=== PATIENT | male | born 1960 | race Two or more races ===

== ENCOUNTER 2024-03-19 10:12 | Inpatient (IN) | payer MEDICAID ==
[~2024-03-19] VITALS: Ht 188 cm; Wt 107.0 kg
--- NOTE | 2024-03-19 10:56 | ED.PDOC ---
SOB-HPI HPI Comments A 63 year old male presents to the ED with a chief complaint of shortness of breath onset 5 days. Patient began experiencing cough with shortness of breath and lightheadedness onset 5 days. Patient has a past medical history of asthma, has been using his inhaler which helps symptoms temporarily. He took an at home COVID test, was negative. Denies chest pain, nausea, vomiting, diarrhea, abdominal pain. No other symptoms or modifying factors present at this time. Chief Complaint: Shortness of Breath Time Seen by MD: 10:53 Reviewed notes: Medications, Allergies Information Source: Patient Mode of Arrival: Ambulatory Severity: Moderate Timing: Days Duration: Since onset PE Risk Factors: None History of: Asthma Prehospital treatment: Treatment (albuterol inhaler) Modifying Factors: Nothing Associated Signs and Symptoms: Cough Radiation: No Radiation Past Medical History PAST MEDICAL HISTORY: Arthritis, Asthma Surgical History: Denies all surgeries Family History Family History: Reviewed,noncontributory to illness, No family hx of Cancer, No family hx of DM, No family hx of Heart pablo, No family hx of HTN, No family hx ofKidney pablo, No family hx of Liver pablo, No family hx of Lung pablo, No family hx of Stroke Social History Smoker: Non-Smoker Alcohol: Denies ETOH Use Drugs: Denies Drug Use Lives In: Home Constitutional: denies: chills, diaphoresis, fatigue, fever, malaise, sweats, weakness, others EENTM: denies: blurred vision, double vision, ear bleeding, ear discharge, ear drainage, ear pain, ear ringing, eye pain, eye redness, hearing loss, mouth pain, mouth swelling, nasal discharge, nose bleeding, nose congestion, nose pain, photophobia, tearing, throat pain, throat swelling, voice changes, others Respiratory: reports: cough, shortness of breath; denies: hemoptysis, orthopnea, SOB at rest, SOB with excertion, stridor, wheezing, others Cardiovascular: denies: chest pain, dizzy spells, diaphoresis, Dyspnea on exertion, edema, irregular heart beat, left arm pain, lightheadedness, palpitations, PND, syncope, others Gastrointestinal: denies: abdomen distended, abdominal pain, blood streaked bowels, constipated, diarrhea, dysphagia, difficulty swallowing, hematemesis, melena, nausea, poor appetite, poor fluid intake, rectal bleeding, rectal pain, vomiting, others Genitourinary: denies: burning, dysuria, flank pain, frequency, hematuria, incontinence, penile discharge, penile sore, pain, testicle pain, testicle swelling, urgency, others Neurological: reports: dizziness; denies: fainting, headache, left sided numbness, left sided weakness, numbness, paresthesia, pre-existing deficit, right sided numbness, right sided weakness, seizure, speech problems, tingling, tremors, weakness, others Musculoskeletal: denies: back pain, gout, joint pain, joint swelling, muscle pain, muscle stiffness, neck pain, others Integumetry: denies: bruises, change in color, change in hair/nails, dryness, laceration, lesions, lumps, rash, wounds, others Allergic/Immunocompromised: denies: Difficulty Healing, Frequent Infections, Hives, Itching, others Hematologic/Lymphatic: denies: anemia, blood clots, easy bleeding, easy bruising, swollen glands, others Endocrine: denies: excessive hunger, excessive sweating, excessive thirst, excessive urination, flushing, intolerance to cold, intolerance to heat, unexplained weight gain, unexplained weight loss, others Psychiatric: denies: anxiety, bipolar disorder, depression, hopeless, panic disorder, schizophrenia, sleepless, suicidal, others All Other Systems: Reviewed and Negative Physical Exam General Appearance: No Apparent Distress, Normal HEENT: Normal ENT Inspection, Pharynx Normal, TMs Normal Neck: Full Range of Motion, Non-Tender, Normal, Normal Inspection Respiratory: Chest Non-Tender, No Accessory Muscle Use, Wheezing (bilateral, expiratory) Cardiovascular: No Edema, No JVD, No Murmur, No Gallop, Normal Peripheral Pulses, Regular Rate/Rhythm Breast Exam: Deferred Gastrointestinal: No Organomegaly, Non Tender, No Pulsatile Mass, Normal Bowel Sounds, Soft Genitalia: Deferred Pelvic: Deferred Rectal: Deferred Extremities: No calf tenderness, Normal capillary refill, Normal inspection, Normal range of motion, Non-tender, No pedal edema Musculoskeletal : Apperance: Normal Neurologic: Alert, hand flesher II-XII nml as Tested, No Motor Deficits, Normal Affect, Normal Mood, No Sensory Deficits Cerebellar Function: Normal Reflexes: Normal Skin: Dry, Normal Color, Warm Lymphatic: No Adenopathy Was a procedure done? Was a procedure done?: No Differential Dx Differential Diagnosis: Asthma, Bronchitis, CHF, COPD, Pneumonia, URI X-Ray, Labs, Meds, VS Vital Signs Date Time Temp Pulse Resp B/P (MAP) Pulse Ox O2 Delivery O2 Flow Rate FiO2 03/19/24 11:09 24 99 Room Air* 0 21 03/19/24 10:45 98.7 99 18 114/81 (92) 99 Lab Test 03/19/24 11:57 03/19/24 11:00 Range/Units Troponin I High Sensitivity < 3 L < 3 L </=54 ng/L White Blood Count 6.2 4.4-10.8 10^3/uL Red Blood Count 4.62 4.5-5.90 10^6/uL Hemoglobin 16.2 13.5-17.5 g/dL Hematocrit 47.1 41.0-53.0 % Mean Corpuscular Volume 101.9 H 80.0-100.0 fL Mean Corpuscular Hemoglobin 35.0 H 28.0-32.0 pg Mean Corpuscular Hemoglobin Concent 34.4 32.0-36.0 g/dL Red Cell Distribution Width 14.7 H 11.8-14.3 % Platelet Count 274 140-450 10^3/uL Mean Platelet Volume 7.7 6.9-10.8 fL Neutrophils (%) (Auto) 73.2 37.0-80.0 % Lymphocytes (%) (Auto) 12.0 10.0-50.0 % Monocytes (%) (Auto) 12.2 H 0.0-12.0 % Eosinophils (%) (Auto) 1.9 0.0-7.0 % Basophils (%) (Auto) 0.7 0.0-2.0 % Neutrophils # (Auto) 4.5 1.6-8.6 10 ^3/uL Lymphocytes # (Auto) 0.7 0.4-5.4 10 ^3/uL Monocytes # (Auto) 0.8 0-1.3 10 ^3/uL Eosinophils # (Auto) 0.1 0-0.8 10 ^3/uL Basophils # (Auto) 0 0-0.2 10 ^3/uL Nucleated Red Blood Cells 0.2 % Sodium Level 139 136-145 mmol/L Potassium Level 4.7 3.5-5.1 mmol/L Chloride Level 107 98-107 mmol/L Carbon Dioxide Level 23 20-31 mmol/L Anion Gap 9 5-15 Blood Urea Nitrogen 19 9-23 mg/dL Creatinine 1.29 0.700-1.30 mg/dL Glomerular Filtration Rate Calc 63 >90 mL/min BUN/Creatinine Ratio 14.7 10.0-20.0 Serum Glucose 127 H 74-106 mg/dL Calcium Level 9.9 8.7-10.4 mg/dL B-Type Natriuretic Peptide 2.25 0-100 pg/mL Current Medications Medications (Trade) Dose Ordered Sig/Cliff Route Start Time Stop Time Status Last Admin Azithromycin (Zithromax Tablet) 500 mg ONCE ONCE PO 03/19/24 11:00 03/19/24 11:01 DC 03/19/24 11:16 Albuterol (Ventolin Medneb) 5 mg ONCE ONCE NEB 03/19/24 11:00 03/19/24 11:01 DC 03/19/24 11:08 Ipratropium [place] (Atrovent Medneb) 0.5 mg ONCE ONCE NEB 03/19/24 11:00 03/19/24 11:01 DC 03/19/24 11:08 [place] [id number] Ph: [phone] DIAGNOSTIC IMAGING Diagnostic Imaging Report : [id number] Signed PATIENT: BELKYS MARSHALLCCT: [id number] UNIT: [id number] : 1960 LOC: ER ROOM / BED: / AGE / SEX: 63 / M ADM STATUS: REG ER SERVICE 1056 ORDERING PHYSICIAN: JV LUNA MD PROCEDURE(s): CXR2 - CHEST TWO VIEWS ROUTINE REASON: SOB ORDER NUMBER(s): [id number], ACCESSION NUMBER(s): [id number] CHEST RADIOGRAPH Indication: SOB Technique: Frontal and lateral view of the chest was obtained Comparison: None FINDINGS: Lines and Tubes: None Lungs: Bilateral perihilar airspace disease. Pleura: No effusion. No pneumothorax. Cardiomediastinal contours: Unremarkable Bones: Unremarkable IMPRESSION: 1. Bilateral perihilar airspace disease. ATED BY: AFSHIN MONTERROSO MD DICTATED DATE/TIME: 03/19/24 1145 SIGNED BY: AFSHIN MONTERROSO MD SIGNED DATE/TIME: 03/19/24 1145 CC: Time of 1ST Reevaluation: 11:23 Reevaluation 1ST: Unchanged Patient Education/Counseling: Diagnosis, Treatment, Prognosis Family Education/Counseling: No Family Present Additional Information The following tests were ordered, and results were reviewed by me: CBC, BNP, TROP, TROP, TROP. BMP, EKG, XY CHEST 2 VIEWS I reviewed and agreed with the following test results read by other providers: XY CHEST 2 VIEWS I discussed treatment and results with medical personnel and paitent Departure 1 Departure Time of Disposition: 12:35 (Patient presented with acute shortness of breath concerning for acute on chronic COPD Exacerbation, Pneumonia, ACS, CHF, Pneumothorax. Less likely PE, Dissection. Data: 1. I ordered and reviewed the result of at least 3 labs including a CBC, BMP, and Troponin. 2. I independently interpreted the following tests: Chest X-ray shows airspace disease .Risk:This patient has a high risk of morbidity due to further diagnostic testing or treatment and may suffer from respiratory or cardiac etiology . Workup reveals a likely COPD Exacerbation and patient should be admitted for further workup. and possible expert consultation.) Impression: Primary Impression: Acute exacerbation of COPD with asthma Disposition: ADMITTED INPATIENT Admit to: Med Surg Condition: Serious Critical Care Note Critical Care Time?: Yes Critical care comment: Acute shortness of breath Authorized and Performed by: Jv Luna MD Total critical care time: Approximately 33 minutes Due to a high probability of clinically significant, life threatening deterioration, the patient required my highest level of preparedness to intervene emergently and I personally spent this critical care time directly and personally managing the patient. This critical care time included obtaining a history; examining the patient; pulse oximetry; ordering and review of studies; arranging urgent treatment with development of a management plan; evaluation of patient's response to treatment; frequent reassessment; and, discussions with other providers. This critical care time was performed to assess and manage the high probability of imminent, life-threatening deterioration that could result in multi-organ failure. It was exclusive of separately billable procedures and treating other patients and teaching time. Please see my other sections and the rest of the note for further information on patient assessment and treatment. Stability Stability form required: No Heart Score Heart Score: Heart Score Response (Comments) Value History N/A 0 EKG N/A 0 Age N/A 0 Risk Factors N/A 0 Troponin N/A 0 Total 0 I personally scribed for JV LUNA MD ([email or web address]) on 03/19/24 at 10:56. Electronically submitted by Fanta Zimmerman ([email or web address]). I personally scribed for JV LUNA MD ([email or web address]) on 03/19/24 at 11:21. Electronically submitted by Fanta Zimmerman ([email or web address]). I personally scribed for JV LUNA MD ([email or web address]) on 03/19/24 at 11:58. Electronically submitted by Fanta Zimmerman ([email or web address]). JV LUNA MD Mar 19, 2024 10:56
--- NOTE | 2024-03-19 11:07 | ECG ---
[facility] Test Date: 2024-03-19 Test Time: 10:47:24 Pat Name: BELKYS MARSHALL Department: ER Room: 0246 Gender: M [employer] Executive: JORGE : 1960 Requested By: ABENA MASSEY Order Number: [id number] Reading MD: Gianfranco Dorantes Measurements Intervals [place] Rate: 99 P: 12 NV: 135 QRS: -86 QRSD: 88 T: 61 QT: 334 QTc: 429 Interpretive Statements Sinus rhythm Consider right atrial enlargement LAD, consider left anterior fascicular block Probable right ventricular hypertrophy Electronically Signed On 03-22-2024 13:04:41 PST by Gianfranco Dorantes Please click the below link to view image of tracing.
[2024-03-19] MEDS: ALBUTEROL SULF 2.5 MG/0.5ML(0.5%) NEB SOLN NEB ONE (11:08)
[2024-03-19] MEDS: IPRATROPIUM BROM 0.5 MG/2.5ML INH SOL NEB ONE (11:08)
[2024-03-19 11:16] LABS: Basophils # (auto) 0 10 ^3/uL (0-0.2); Basophils % (auto) 0.7 % (0.0-2.0); Eosinophils # (auto) 0.1 10 ^3/uL (0-0.8); Eosinophils % (auto) 1.9 % (0.0-7.0); Hematocrit 47.1 % (41.0-53.0); Hemoglobin 16.2 g/dL (13.5-17.5); Lymphocytes # (auto) 0.7 10 ^3/uL (0.4-5.4); Mean Corpuscular Hgb Conc. 34.4 g/dL (32.0-36.0); Mean Corpuscular Volume 101.9 fL (80.0-100.0); Monocytes # (auto) 0.8 10 ^3/uL (0-1.3); Monocytes % (auto) 12.2 % (0.0-12.0); Neutrophils # (auto) 4.5 10 ^3/uL (1.6-8.6); Neutrophils % (auto) 73.2 % (37.0-80.0); Nucleated Red Blood Cells % 0.2 %; Platelet Count (auto) 274 10^3/uL (140-450); Red Blood Cells 4.62 10^6/uL (4.5-5.90); Red Cell Distribution Width 14.7 % (11.8-14.3); White Blood Cell 6.2 10^3/uL (4.4-10.8)
[2024-03-19] MEDS: AZITHROMYCIN 250 MG TAB PO ONE (11:16)
[2024-03-19 11:24] LABS: Potassium 4.7 mmol/L (3.5-5.1); Sodium 139 mmol/L (136-145)
[2024-03-19 11:25] LABS: Anion Gap 9 (5-15); Carbon Dioxide 23 mmol/L (20-31)
[2024-03-19 11:26] LABS: Calcium 9.9 mg/dL (8.7-10.4)
[2024-03-19 11:31] LABS: BUN/Creatinine Ratio 14.7 (10.0-20.0); Blood Urea Nitrogen 19 mg/dL (9-23)
[2024-03-19 11:35] LABS: Chloride 107 mmol/L (98-107); Glucose 127 mg/dL (74-106)
--- NOTE | 2024-03-19 11:48 | DVH ---
CHEST RADIOGRAPH Indication: SOB Technique: Frontal and lateral view of the chest was obtained Comparison: None FINDINGS: Lines and Tubes: None Lungs: Bilateral perihilar airspace disease. Pleura: No effusion. No pneumothorax. Cardiomediastinal contours: Unremarkable Bones: Unremarkable IMPRESSION: 1. Bilateral perihilar airspace disease.
[2024-03-19] MEDS: ACETAMINOPHEN 500 MG TAB or CAP PO ONE (12:53)
[2024-03-19] MEDS: methylPREDNISolone SOD SUCC 125 MG/2 ML VL IV ONE (13:23)
[2024-03-19] MEDS ORDERED: HYDROcodone-ACET 5/325MG TAB PO PRN (18:45)
[2024-03-19] MEDS ORDERED: ONDANSETRON HCL 4 MG/2 ML VIAL IV PRN (18:45)
[2024-03-19] MEDS ORDERED: ACETAMINOPHEN 325 MG TAB PO PRN (18:45)
--- NOTE | 2024-03-19 18:54 | DVHHP2 ---
History of Present Illness Reason for Visit: Shortness of breath, cough, lightheadedness History of Present Illness As always, Bao Lyles is a 63-year-old male with past medical history of asthma and rheumatoid arthritis who presents to the ED today for shortness of breath, cough, and lightheadedness x5 days. Patient reports that he had a recent sick contact which is his roommate. Patient also reports that he has been using his albuterol inhaler for his asthma to no success. Patient reports that he is active and typically does not get ill but is here for an evaluation. Patient denies any fevers, chills, chest pain, nausea, vomiting, diarrhea, headache, and dizziness. Pulmonary: Asthma Past Medical History Rheumatoid arthritis Past Surgical History: Other Past Surgical History Left foot surgery, nasal surgery, bilateral knee replacements Family History Patient reports that he was adopted and does not know Smoke: Quit ALCOHOL: none Drugs: None Lives: Roommate Domestic Violence: Neg Review of Systems Constitutional: No: Fever, Chills, Sweats, Weakness, Malaise, Other Eyes: No: Pain, Vision change, Conjunctivae inflammation, Eyelid inflammation, Other, Redness ENT: No: Ear pain, Ear discharge, Nose pain, Nose discharge, Nose congestion, Mouth pain, Mouth swelling, Throat pain, Throat swelling, Other Respiratory: Cough, Shortness of breath, Wheezing; No: Dry, SOB with excertion, Hemoptysis, Pleuritic Pain, Sputum, Wheezing, Other Cardiovascular: Lt Headedness; No: Chest Pain, Palpitations, Orthopnea, Paroxysmal Noc. Dyspnea, Edema, Other Gastrointestinal: No: Nausea, Vomiting, Abdominal Pain, Diarrhea, Constipation, Melena, Hematochezia, Other Genitourinary: No Dysuria, No Frequency, No Incontinence, No Hematuria, No Retention, No Other Musculoskeletal: No: other, neck pain, shoulder pain, arm pain, back pain, hand pain, leg pain, foot pain Skin: No: Rash, Lesions, Jaundice, Bruising, Other Neurological: No: Weakness, Numbness, Incoordination, Change in speech, Confusion, Seizures, Other Allergies: Coded Allergies: NO KNOWN ALLERGIES (Unverified , 03/19/24) Exam Vital Signs Vital Signs Date Time Temp Pulse Resp B/P (MAP) Pulse Ox O2 Delivery O2 Flow Rate FiO2 12/21/24 18:33 98.7 91 18 129/82 (98) 97 98.7 03/19/24 12:31 Room Air 03/19/24 11:09 0 21 General Appearance: Alert, Oriented X3, Cooperative, mild distress HEENT: Atraumatic, PERRLA, EOMI, Mucous membr. moist/pink Respiratory: Normal air movement Cardiovascular: Regular rate, Normal S1, Normal S2, No murmurs Abdominal: Normal bowel sounds, Soft, No tenderness, No hepatospenomegaly, No masses Extremities: No clubbing, No cyanosis, No edema, Normal pulses, No tenderness/swelling Skin: No rashes, No breakdown, No significant lesion Neuro: Normal gait, Normal speech, Strength at 5/5 X4 ext, Normal tone, Sensation intact Psych/Mental Status: Mental status NL, Mood NL Labs/Xrays Labs Test 03/19/24 11:57 03/19/24 11:00 Range/Units Troponin I High Sensitivity < 3 L </=54 ng/L White Blood Count 6.2 4.4-10.8 10^3/uL Red Blood Count 4.62 4.5-5.90 10^6/uL Hemoglobin 16.2 13.5-17.5 g/dL Hematocrit 47.1 41.0-53.0 % Mean Corpuscular Volume 101.9 H 80.0-100.0 fL Mean Corpuscular Hemoglobin 35.0 H 28.0-32.0 pg Mean Corpuscular Hemoglobin Concent 34.4 32.0-36.0 g/dL Red Cell Distribution Width 14.7 H 11.8-14.3 % Platelet Count 274 140-450 10^3/uL Mean Platelet Volume 7.7 6.9-10.8 fL Neutrophils (%) (Auto) 73.2 37.0-80.0 % Lymphocytes (%) (Auto) 12.0 10.0-50.0 % Monocytes (%) (Auto) 12.2 H 0.0-12.0 % Eosinophils (%) (Auto) 1.9 0.0-7.0 % Basophils (%) (Auto) 0.7 0.0-2.0 % Neutrophils # (Auto) 4.5 1.6-8.6 10 ^3/uL Lymphocytes # (Auto) 0.7 0.4-5.4 10 ^3/uL Monocytes # (Auto) 0.8 0-1.3 10 ^3/uL Eosinophils # (Auto) 0.1 0-0.8 10 ^3/uL Basophils # (Auto) 0 0-0.2 10 ^3/uL Nucleated Red Blood Cells 0.2 % Sodium Level 139 136-145 mmol/L Potassium Level 4.7 3.5-5.1 mmol/L Chloride Level 107 98-107 mmol/L Carbon Dioxide Level 23 20-31 mmol/L Anion Gap 9 5-15 Blood Urea Nitrogen 19 9-23 mg/dL Creatinine 1.29 0.700-1.30 mg/dL Glomerular Filtration Rate Calc 63 >90 mL/min BUN/Creatinine Ratio 14.7 10.0-20.0 Serum Glucose 127 H 74-106 mg/dL Calcium Level 9.9 8.7-10.4 mg/dL B-Type Natriuretic Peptide 2.25 0-100 pg/mL CHEST RADIOGRAPH Indication: SOB Technique: Frontal and lateral view of the chest was obtained Comparison: None FINDINGS: Lines and Tubes: None Lungs: Bilateral perihilar airspace disease. Pleura: No effusion. No pneumothorax. Cardiomediastinal contours: Unremarkable Bones: Unremarkable IMPRESSION: 1. Bilateral perihilar airspace disease. Assessment/Plan Assessment/Plan Assessment/Plan: Acute asthma exacerbation Chest x-ray noted EKG Troponins BNP Respiratory treatments Chest x-ray a.m. IV steroids P.r.n. oxygen Labs A.m. labs IV antibiotics Rheumatoid arthritis Follow up outpatient FEN/PPX diet hl DVT ppx not indicated patient ambulating PUD ppx not indicated no hx of GERD Discussed plan of care with patient and nurse Admit to med surg Plan discussed with: Patient My Orders Orders - TOMMY CASSIDY [employer]INEER Procedure Category Date Status Time Rapid Influenza A&B LAB 03/19/24 Logged 18:32 Covid19 Antigen Nisha LAB 03/19/24 Logged Chest Xray 1 View XY 03/20/24 Logged 04:00 Ceftriaxone 1gm/50ml PHA 03/20/24 Logged D5w (Rocephin) 09:00 Ceftriaxone 1gm/50ml PHA 03/19/24 Logged D5w (Rocephin) 18:45 Methylprednisolone PHA 03/19/24 Logged Sod Succ (Solu Medrol 22:00 Albuterol Medneb PHA 03/20/24 Logged (Ventolin Medneb) 06:00 Albuterol Medneb PHA 03/19/24 Logged (Ventolin Medneb) 18:45 Ipratropium Medneb PHA 03/20/24 Logged (Atrovent Medneb) 06:00 Ipratropium Medneb PHA 03/19/24 Logged (Atrovent Medneb) 18:45 Admit ADMIT 03/19/24 Transmitted 18:34 Allergies DONAVAN 03/19/24 In Process 18:34 Code Status CODE 03/19/24 Transmitted 18:34 Hydrocodone-Acet PHA 03/19/24 Logged 5/325mg Tab ([place] 18:45 Ondansetron Hcl PHA 03/19/24 Logged (Zofran) 18:45 Complete Blood Count LAB 03/20/24 Verified 04:00 Comprehensive LAB 03/20/24 Verified Metabolic Panel 04:00 Cardiac DIET 03/20/24 Transmitted Diet-2gna,Lofat,Lochol Breakfast Acetaminophen Tablet PHA 03/19/24 Logged (Tylenol Tablet) 18:45 Date of Service: Mar 19, 2024 Billing Provider: TOMMY CASSIDY Common Visit Codes: [id number] INP/OBS CARE (MOD) TOMMY CASSIDY Mar 19, 2024 18:54
[2024-03-19 19:15] VITALS: PULSE 71; RESP 16; O2SAT 99
[2024-03-19] MEDS: cefTRIAXone 1GM/50ML D5W 50 ML IV ONE (19:23)
[2024-03-19 19:53] VITALS: BP 124/75; PULSE 91; RESP 18; TEMP 99.5; O2SAT 99
[2024-03-19 20:50] LABS: Urine Bacteria None Seen /hpf (None Seen); Urine WBC None Seen /hpf (0 - 3)
[2024-03-19 21:26] LABS: Urine Blood Negative /uL (Negative); Urine Clarity Clear (Clear); Urine Color Yellow (Yellow); Urine Protein, UAD Negative (Negative); Urine Specific Gravity 1.023 (1.001-1.035); Urine Squamous Epithelial Cell None Seen /hpf (<5); Urine Urobilinogen Normal (Negative)
[2024-03-19] MEDS: methylPREDNISolone SOD SUCC 40 MG/ML VL IV SCH (21:43)
[2024-03-19 21:57] LABS: COVID19 ANTIGEN SOFIA FIA NEGATIVE (NEGATIVE)
[2024-03-19 21:58] LABS: Rapid Influenza A Negative (Negative); Rapid Influenza B Negative (Negative)
[2024-03-19 22:36] VITALS: BP 155/92; PULSE 87; RESP 16; TEMP 97.9; O2SAT 98
[2024-03-19 22:50] VITALS: RESP 20
[2024-03-19 22:59] VITALS: PULSE 89; RESP 18; O2SAT 98
[2024-03-19] MEDS: ALBUTEROL SULF 2.5 MG/0.5ML(0.5%) NEB SOLN NEB PRN (22:59)
[2024-03-19] MEDS: IPRATROPIUM BROM 0.5 MG/2.5ML INH SOL NEB PRN (22:59)
[2024-03-19 23:09] VITALS: PULSE 90; RESP 20; O2SAT 99
[2024-03-20] VITALS (15 sets, daily range): BP systolic 105–142; BP diastolic 66–78; PULSE 70–95; RESP 16–22; TEMP 97.3–98; O2SAT 96–100
[2024-03-20] MEDS ORDERED: PANT40TA2 PO (00:07)
[2024-03-20] MEDS ORDERED: BENZ100C97 PO (00:07)
[2024-03-20] MEDS ORDERED: FOLI-119 PO (00:07)
[2024-03-20] MEDS ORDERED: IBUP-1456 PO (00:07)
[2024-03-20] MEDS ORDERED: METH2.5T PO (00:07)
[2024-03-20] MEDS ORDERED: ETAN25IN8 SC (00:18)
--- NOTE | 2024-03-20 05:11 | DVH ---
CHEST RADIOGRAPH Indication: r/o pna Technique: Single frontal view of the chest was obtained Comparison: None IMPRESSION: The heart appears normal in size. The lungs appear clear without focal airspace opacity, effusion, o r pneumothorax.
[2024-03-20] MEDS: IPRATROPIUM BROM 0.5 MG/2.5ML INH SOL NEB SCH (05:44)
[2024-03-20] MEDS: ALBUTEROL SULF 2.5 MG/0.5ML(0.5%) NEB SOLN NEB SCH (05:44)
[2024-03-20 07:02] LABS: Basophils # (auto) 0.1 10 ^3/uL (0-0.2); Basophils % (auto) 1.1 % (0.0-2.0); Eosinophils # (auto) 0 10 ^3/uL (0-0.8); Eosinophils % (auto) 0.1 % (0.0-7.0); Hematocrit 42.9 % (41.0-53.0); Hemoglobin 14.8 g/dL (13.5-17.5); Lymphocytes # (auto) 0.7 10 ^3/uL (0.4-5.4); Lymphocytes % (auto) 10.5 % (10.0-50.0); Mean Corpuscular Hemoglobin 35.5 pg (28.0-32.0); Mean Corpuscular Hgb Conc. 34.5 g/dL (32.0-36.0); Mean Corpuscular Volume 102.8 fL (80.0-100.0); Monocytes # (auto) 0.6 10 ^3/uL (0-1.3); Monocytes % (auto) 9.2 % (0.0-12.0); Neutrophils # (auto) 5.2 10 ^3/uL (1.6-8.6); Neutrophils % (auto) 79.1 % (37.0-80.0); Platelet Count (auto) 247 10^3/uL (140-450); Red Blood Cells 4.17 10^6/uL (4.5-5.90); Red Cell Distribution Width 14.6 % (11.8-14.3); White Blood Cell 6.5 10^3/uL (4.4-10.8)
[2024-03-20 07:31] LABS: Albumin 4.3 g/dL (3.2-4.8); Alkaline Phosphatase 114 U/L (46-116); Anion Gap 10 (5-15); Aspartate Aminotransferase 32 U/L (13-40); BUN/Creatinine Ratio 17.3 (10.0-20.0); Blood Urea Nitrogen 17 mg/dL (9-23); Calcium 9.4 mg/dL (8.7-10.4); Carbon Dioxide 22 mmol/L (20-31); Potassium 4.2 mmol/L (3.5-5.1); Sodium 140 mmol/L (136-145)
[2024-03-20 07:32] LABS: Bilirubin, Total 0.3 mg/dL (0.2-1.0); Total Protein 7.5 g/dL (5.7-8.2)
[2024-03-20 07:50] LABS: Alanine Aminotransferase 41 U/L (7-40); Chloride 108 mmol/L (98-107); Glucose 154 mg/dL (74-106)
[2024-03-20] MEDS: cefTRIAXone 1GM/50ML D5W 50 ML IV SCH (09:12)
--- NOTE | 2024-03-20 19:25 | DVHPN2 ---
Subjective c/o chest tightness and wheezing/chest tightness is better than admission Changes from previous H/P or p: No Changes Eyes: No Pain, No Vision change, No Conjunctivae inflammation, No Eyelid inflammation, No Other, No Redness ENT: No Ear pain, No Ear discharge, No Nose pain, No Nose discharge, No Nose congestion, No Mouth pain, No Mouth swelling, No Throat pain, No Throat swelling, No Other Cardiovascular: No Chest Pain, No Palpitations, No Orthopnea, No Paroxysmal Noc. Dyspnea, No Edema; Lt Headedness; No Other Respiratory: Cough; No Dry; Shortness of breath; No SOB with excertion; W heezing; No Hemoptysis, No Pleuritic Pain, No Sputum, No Other Gastrointestinal: No Nausea, No Vomiting, No Abdominal Pain, No Diarrhea, No Constipation, No Melena, No Hematochezia, No Other Genitourinary: No Dysuria, No Frequency, No Incontinence, No Hematuria, No Retention, No Other Musculoskeletal: No other, No neck pain, No shoulder pain, No arm pain, No back pain, No hand pain, No leg pain, No foot pain Skin: No Rash, No Lesions, No Jaundice, No Bruising, No Other Objective Vitals Vital Signs Date Time Temp Pulse Resp B/P (MAP) Pulse Ox O2 Delivery O2 Flow Rate FiO2 03/20/24 19:02 78 20 96 03/20/24 18:56 Nasal Cannula* 2 28 03/20/24 17:00 97.9 112/66 (81) 97.9 Intake/Output Intake and Output 03/20/24 07:00 Intake Total 550 ml Balance 550 ml Intake Oral 500 ml IV Total 50 ml # Voids 1 General Appearance: Alert, Oriented X3, Cooperative, mild distress Lungs: Clear to auscultation, Other (very occasional wheeze) Cardiovascular: Regular rate, Normal S1, Normal S2, No murmurs Abdomen: Normal bowel sounds Musculoskeletal: Normal sensory function, Normal motor function Neuro: Normal gait, Normal speech, Strength at 5/5 X4 ext, Normal tone, S ensation intact, Cranial nerves 3-12 NL, Reflexes 2+ Medications Current Medications Medications Dose Ordered Sig/Cliff Route Start Time Stop Time Status Last Admin Dose Admin Ceftriaxone Sodium 50 ml @ 100 mls/hr DAILY@09 IV 03/20/24 09:00 03/20/24 09:12 100 MLS/HR Albuterol 2.5 mg Q6HWA NEB 03/20/24 06:00 03/20/24 18:56 2.5 MG Albuterol 2.5 mg Q4HPRN PRN NEB 03/19/24 18:45 03/19/24 22:59 2.5 MG Ipratropium [place] 0.5 mg Q6HWA NEB 03/20/24 06:00 03/20/24 18:56 0.5 MG Ipratropium [place] 0.5 mg Q4HPRN PRN NEB 03/19/24 18:45 03/19/24 22:59 0.5 MG Acetaminophen/ Hydrocodone Bitart 1 tab Q4HP PRN PO 03/19/24 18:45 Ondansetron HCl 4 mg Q4HP PRN IV 03/19/24 18:45 Acetaminophen 650 mg Q6HP PRN PO 03/19/24 18:45 Methylprednisolone Sodium Succinate 40 mg BID IV 03/20/24 22:00 UNV Laboratory Results Laboratory Tests 03/20/24 06:48 Chemistry Test 03/20/24 06:48 Albumin 4.3 g/dL (3.2-4.8) Calcium Level 9.4 mg/dL (8.7-10.4) Total Protein 7.5 g/dL (5.7-8.2) LFT Test 03/20/24 06:48 Alanine Aminotransferase (ALT) 41 U/L (7-40) H Alkaline Phosphatase 114 U/L (46-116) Aspartate Amino Transferase (AST) 32 U/L (13-40) Total Bilirubin 0.3 mg/dL (0.2-1.0) Urinalysis Test 03/19/24 20:48 Urine Color Yellow (Yellow) Urine Clarity Clear (Clear) Urine pH 7.0 (5.0-9.0) Urine Specific [place] 1.023 (1.001-1.035) Urine Protein Negative (Negative) Urine Ketones Trace (Negative) Urine Blood Negative /uL (Negative) Urine Nitrite Negative (Negative) Urine Bilirubin Negative (Negative) Urine Urobilinogen Normal mg/dL (Negative) Urine Leukocyte Esterase Negative /uL (Negative) Urine RBC 1 /hpf (0 - 3) Urine WBC None seen /hpf (0 - 3) Urine Squamous Epithelial Cells None seen /hpf (<5) Urine Bacteria None seen /hpf (None Seen) Urine Glucose 3+ mg/dL (Normal) H Assessment/Plan Assessment/Plan acute respiratory failure ashma exacerbation-chest more silent for pt exam- check ct/dd still asthma if cta is negative Plan discussed with: Patient, Other My Orders Orders - AMELIE NÚÑEZ MD Procedure Category Date Status Time Apply: DONAVAN 03/20/24 In Process 11:00 Cleanse Wound With Ns DONAVAN 03/20/24 In Process 11:00 Methylprednisolone PHA 03/20/24 Logged Sod Succ (Solu Medrol 22:[address] 03/20/24 Transmitted Contrast 19:20 Enoxaparin Sodium PHA 03/20/24 Transmitted (Lovenox) 19:30 Date of Service: Mar 20, 2024 Billing Provider: AMELIE NÚÑEZ MD Common Visit Codes: [id number] INP/OBS CARE(HIGH) AMELIE NÚÑEZ MD Mar 20, 2024 19:25
[2024-03-20] MEDS: ENOXAPARIN SOD 40 MG/0.4 ML SYRINGE SC ONE (20:11)
[2024-03-20] MEDS: methylPREDNISolone SOD SUCC 40 MG/ML VL IV SCH (21:22)
[2024-03-21] VITALS (14 sets, daily range): BP systolic 110–128; BP diastolic 60–78; PULSE 73–93; RESP 17–22; TEMP 97.4–98.6; O2SAT 91–100
[2024-03-21 06:19] LABS: Potassium 4.1 mmol/L (3.5-5.1); Sodium 140 mmol/L (136-145)
[2024-03-21 06:20] LABS: Anion Gap 10 (5-15); Calcium 8.9 mg/dL (8.7-10.4); Carbon Dioxide 23 mmol/L (20-31)
[2024-03-21 06:25] LABS: Blood Urea Nitrogen 15 mg/dL (9-23)
[2024-03-21 06:26] LABS: Chloride 107 mmol/L (98-107); Glucose 152 mg/dL (74-106)
[2024-03-21 08:58] LABS: Hepatitis B Surface Antigen Negative (Negative)
--- NOTE | 2024-03-21 09:04 | DVH ---
PROCEDURE: CT CT ANGIO CHEST CONTRAST 03/21/2024 08:23 AM INDICATION: dyspnea COMPARISON: Chest radiograph dated 03/20/2024 TECHNIQUE: Coverage: Thorax IV contrast: Administered Phases: Arterial Multiplanar 3-D Maximum Intensity Projection images (MIP) reconstructions were created by the technestefany collins in the coronal and sagittal planes as part of the CT angiography protocol. Adverse events: None Medication laboratory values were reviewed to verify the patient meets criteria for contrast administ ration. All CT scans at this medical facility are performed using dose modulation techniques as appropriate t o a performed exam including the following: Automated exposure control was utilized; adjustment of th e MA and/or KV according to patient size; and use of iterative reconstruction technique. Radiation dose: CTDIvol 23, 21 mGy, DLP 782 mGy*cm. FINDINGS: Cardiovascular: No evidence of acute or chronic pulmonary emboli identified. Aorta is normal in calib er. The heart is normal in size. Lungs: Bibasilar dependent opacities are noted. Mild bronchial thickening in the bilateral lower lung zones. No pleural effusion. No pneumothorax. The airways are patent. Thyroid: Unremarkable Esophagus: Unremarkable. Lymphatics: No hilar or mediastinal lymphadenopathy. Bones/soft tissues: No acute abnormality. Upper abdomen: No acute abnormality. The partially seen spleen is enlarged measuring 14.7 cm in lengt h. Hepatic steatosis noted. Other: None. IMPRESSION: 1. No evidence of acute pulmonary emboli. 2. No aortic aneurysm or dissection. 3. Mild bronchial wall thickening in the bilateral lower lung zones suggestive of bronchitis (acute o r chronic). No signs of COPD or air trapping. 4. Mild bibasilar pulmonary opacities most likely dependent atelectasis. Developing pneumonia can no t be ruled out. Recommend clinical and biochemical correlation.
[2024-03-21 09:25] LABS: Hepatitis C Antibody Negative (Negative)
[2024-03-21 10:17] LABS: Folate (Folic Acid) 7.19 ng/mL (>5.38)
--- NOTE | 2024-03-21 11:26 | DVHPN2 ---
Subjective The patient seen and examined at bedside. Still have shortness of breath. Reviewed: Care Plan, H&P, Labs, Medications, Previous Orders, Radiology Changes from previous H/P or p: No Changes Eyes: No Pain, No Vision change, No Conjunctivae inflammation, No Eyelid inflammation, No Other, No Redness ENT: No Ear pain, No Ear discharge, No Nose pain, No Nose discharge, No Nose congestion, No Mouth pain, No Mouth swelling, No Throat pain, No Throat swelling, No Other Cardiovascular: No Chest Pain, No Palpitations, No Orthopnea, No Paroxysmal Noc. Dyspnea, No Edema; Lt Headedness; No Other Respiratory: Cough; No Dry; Shortness of breath; No SOB with excertion; W heezing; No Hemoptysis, No Pleuritic Pain, No Sputum, No Other Gastrointestinal: No Nausea, No Vomiting, No Abdominal Pain, No Diarrhea, No Constipation, No Melena, No Hematochezia, No Other Genitourinary: No Dysuria, No Frequency, No Incontinence, No Hematuria, No Retention, No Other Musculoskeletal: No other, No neck pain, No shoulder pain, No arm pain, No back pain, No hand pain, No leg pain, No foot pain Skin: No Rash, No Lesions, No Jaundice, No Bruising, No Other Objective Vitals Vital Signs Date Time Temp Pulse Resp B/P (MAP) Pulse Ox O2 Delivery O2 Flow Rate FiO2 03/21/24 10:00 94 Room Air* 0 21 03/21/24 09:00 97.4 91 18 116/76 (89) 97.4 Intake/Output Intake and Output 03/21/24 07:00 Intake Total 1710 ml Balance 1710 ml Intake Oral 1660 ml IV Total 50 ml # Voids 4 # Bowel Movements 1 General Appearance: Alert, Oriented X3, Cooperative, mild distress Lungs: Clear to auscultation, Other (very occasional wheeze) Cardiovascular: Regular rate, Normal S1, Normal S2, No murmurs Abdomen: Normal bowel sounds Musculoskeletal: Normal sensory function, Normal motor function Neuro: Normal gait, Normal speech, Strength at 5/5 X4 ext, Normal tone, S ensation intact, Cranial nerves 3-12 NL, Reflexes 2+ Medications Current Medications Medications Dose Ordered Sig/Cliff Route Start Time Stop Time Status Last Admin Dose Admin Ceftriaxone Sodium 50 ml @ 100 mls/hr DAILY@09 IV 03/20/24 09:00 03/21/24 09:23 100 MLS/HR Albuterol 2.5 mg Q6HWA NEB 03/20/24 06:00 03/21/24 06:39 2.5 MG Albuterol 2.5 mg Q4HPRN PRN NEB 03/19/24 18:45 03/19/24 22:59 2.5 MG Ipratropium [place] 0.5 mg Q6HWA NEB 03/20/24 06:00 03/21/24 06:39 0.5 MG Ipratropium [place] 0.5 mg Q4HPRN PRN NEB 03/19/24 18:45 03/19/24 22:59 0.5 MG Acetaminophen/ Hydrocodone Bitart 1 tab Q4HP PRN PO 03/19/24 18:45 Ondansetron HCl 4 mg Q4HP PRN IV 03/19/24 18:45 Acetaminophen 650 mg Q6HP PRN PO 03/19/24 18:45 Methylprednisolone Sodium Succinate 40 mg BID IV 03/20/24 22:00 03/21/24 09:23 40 MG Laboratory Results Laboratory Tests 03/20/24 06:48 03/21/24 05:12 Chemistry Test 03/21/24 05:12 Calcium Level 8.9 mg/dL (8.7-10.4) Urinalysis Test 03/19/24 20:48 Urine Color Yellow (Yellow) Urine Clarity Clear (Clear) Urine pH 7.0 (5.0-9.0) Urine Specific [place] 1.023 (1.001-1.035) Urine Protein Negative (Negative) Urine Ketones Trace (Negative) Urine Blood Negative /uL (Negative) Urine Nitrite Negative (Negative) Urine Bilirubin Negative (Negative) Urine Urobilinogen Normal mg/dL (Negative) Urine Leukocyte Esterase Negative /uL (Negative) Urine RBC 1 /hpf (0 - 3) Urine WBC None seen /hpf (0 - 3) Urine Squamous Epithelial Cells None seen /hpf (<5) Urine Bacteria None seen /hpf (None Seen) Urine Glucose 3+ mg/dL (Normal) H Labs and/or images reviewed: Labs reviewed by me Assessment/Plan Assessment/Plan Acute asthma exacerbation Rheumatoid arthritis Continue current management. Continue IV antibiotic Continue solu-medrol Plan discussed with: Patient Date of Service: Mar 21, 2024 Billing Provider: DYANA HONG MD Common Visit Codes: [id number] INP/OBS CARE(HIGH) DYANA HONG MD Mar 21, 2024 11:26
--- NOTE | 2024-03-21 13:07 | DVHSR ---
APPROVED REPORT EXAM: Two-dimensional and M-mode echocardiogram with Doppler and color Doppler. Blood Pressure: 110/75 mmHg INDICATION Dyspnea Asthma , R/O RISK FACTORS Height: 74, Weight: 234 DIMENSIONS LVDd4.3 (3.8-5.7cm)LA (2D)3.6 (1.9-4.0cm)Aortic Root3.4 (2.0-3.7cm) LVDs3.1 (2.5-4.0cm)LA (MM) (1.9-4.0cm)Aortic Cusp Exc2.1 (1.5-2.0cm) EF (%) 55.0 (55-70%)Rt. Atrium4.3 (1.9-4.0cm)Asc. Aorta cm IVSd1.5 (0.7-1.1cm)RV (D) (1.8-2.4cm) PWd1.4 (0.7-1.1cm) Mitral Valve MitralMitral Stenosis E wave0.68m/sMV Mean GR.mmHg A wave0.50m/sMV Peak GR.mmHg E/A ratio1.42D MVAcm2 DECEL [id number] 1/2 [id number] IVRTmsDop MVA2.27cm2 Aortic Valve Aortic ValveAortic Stenosis V11.22m/Carley Mean GR.6mmHg V21.65m/Carley Peak GR.11mmHg LVOT Diameter2.1 (1.8-2.4cm)Doppler AVA2.56cm2 Pulmonic Valve V21.43m/s Tricuspid Valve TR Velocity2.29m/s [id number] Conclusion Normal left ventricular size and dimension. Normal left ventricular systolic function estimated ejec tion fraction 55%. There is a grade 1 diastolic dysfunction. Normal right ventricular size and dimension. Normal right ventricular systolic function. Normal biatrial size and dimension. Normal aortic valve structure and function. Normal mitral valve structure and function. Normal tricuspid valve structure function. Pulmonary valve is grossly normal. No pericardial effusion,
[2024-03-21] MEDS: MELATONIN 5 MG TAB ONE (22:07)
[2024-03-21] MEDS: MELATONIN 5 MG TAB PO ONE (22:47)
[2024-03-22] VITALS (10 sets, daily range): BP systolic 108–125; BP diastolic 68–81; PULSE 65–88; RESP 16–18; TEMP 36.6; O2SAT 94–100
[2024-03-22] MEDS ORDERED: AZIT-74 PO (11:47)
[2024-03-22] MEDS ORDERED: METH4PAK PO (11:47)
--- NOTE | 2024-03-22 11:49 | DVHDS2 ---
Discharge Summary Date of Admission Mar 19, 2024 at 18:34 Date of Discharge: Mar 22, 2024 Admitting Diagnosis Acute asthma exacerbation Rheumatoid arthritis Labs/Diagnostic Data: Laboratory Results Test 03/21/24 05:12 03/20/24 06:48 03/19/24 20:48 03/19/24 20:20 Sodium Level 140 mmol/L (136-145) Potassium Level 4.1 mmol/L (3.5-5.1) Chloride Level 107 mmol/L (98-107) Carbon Dioxide Level 23 mmol/L (20-31) Anion Gap 10 (5-15) Blood Urea Nitrogen 15 mg/dL (9-23) Creatinine 0.79 mg/dL (0.700-1.30) Glomerular Filtration Rate Calc 101 mL/min (>90) BUN/Creatinine Ratio 19.0 (10.0-20.0) Serum Glucose 152 mg/dL (74-106) Calcium Level 8.9 mg/dL (8.7-10.4) Vitamin B12 Level 564 pg/mL (211-911) Folic Acid 7.19 ng/mL (>5.38) White Blood Count 6.5 10^3/uL (4.4-10.8) Red Blood Count 4.17 10^6/uL (4.5-5.90) Hemoglobin 14.8 g/dL (13.5-17.5) Hematocrit 42.9 % (41.0-53.0) Mean Corpuscular Volume 102.8 fL (80.0-100.0) Mean Corpuscular Hemoglobin 35.5 pg (28.0-32.0) Mean Corpuscular Hemoglobin Concent 34.5 g/dL (32.0-36.0) Red Cell Distribution Width 14.6 % (11.8-14.3) Platelet Count 247 10^3/uL (140-450) Mean Platelet Volume 7.7 fL (6.9-10.8) Neutrophils (%) (Auto) 79.1 % (37.0-80.0) Lymphocytes (%) (Auto) 10.5 % (10.0-50.0) Monocytes (%) (Auto) 9.2 % (0.0-12.0) Eosinophils (%) (Auto) 0.1 % (0.0-7.0) Basophils (%) (Auto) 1.1 % (0.0-2.0) Neutrophils # (Auto) 5.2 10 ^3/uL (1.6-8.6) Lymphocytes # (Auto) 0.7 10 ^3/uL (0.4-5.4) Monocytes # (Auto) 0.6 10 ^3/uL (0-1.3) Eosinophils # (Auto) 0 10 ^3/uL (0-0.8) Basophils # (Auto) 0.1 10 ^3/uL (0-0.2) Nucleated Red Blood Cells 0.0 % Total Bilirubin 0.3 mg/dL (0.2-1.0) Aspartate Amino Transferase (AST) 32 U/L (13-40) Alanine Aminotransferase (ALT) 41 U/L (7-40) Alkaline Phosphatase 114 U/L (46-116) Total Protein 7.5 g/dL (5.7-8.2) Albumin 4.3 g/dL (3.2-4.8) Hepatitis B Surface Antigen Negative (Negative) Hepatitis C Antibody Negative (Negative) Urine Color Yellow (Yellow) Urine Clarity Clear (Clear) Urine pH 7.0 (5.0-9.0) Urine Specific [place] 1.023 (1.001-1.035) Urine Protein Negative (Negative) Urine Ketones Trace (Negative) Urine Blood Negative /uL (Negative) Urine Nitrite Negative (Negative) Urine Bilirubin Negative (Negative) Urine Urobilinogen Normal mg/dL (Negative) Urine Leukocyte Esterase Negative /uL (Negative) Urine RBC 1 /hpf (0 - 3) Urine WBC None seen /hpf (0 - 3) Urine Squamous Epithelial Cells None seen /hpf (<5) Urine Bacteria None seen /hpf (None Seen) Urine Glucose 3+ mg/dL (Normal) Influenza Type A Antigen Negative (Negative) Influenza Type B Antigen Negative (Negative) SARS-CoV-2 Antigen (Rapid) Negative (NEGATIVE) Test 03/19/24 11:57 03/19/24 11:00 Troponin I High Sensitivity < 3 ng/L (</=54) B-Type Natriuretic Peptide 2.25 pg/mL (0-100) Other Laboratory Tests 03/21/24 05:12 03/20/24 06:48 Brief Hx & Hospital Course: This is a 63 years old male with past medical history of asthma and rheumatoid arthritis came to emergency department because severe shortness for breath, cough, lightheadedness for five days. The patient had recent sick contact with his roommate. He had used albuterol inhaler for his shortness for breath but not successful. So he decided to come to hospital for further evaluation. The patient was found to have asthma exacerbation. The patient was admitted and was put on IV antibiotic with Rocephin. The patient also received nebulizer with DuoNeb p.r.n... The patient also was put on Solu-Medrol IV. Subsequently the patient doing better and able to ambulate with less shortness for breath. I am going to discharge him home today. Advised him to follow up with primary care physician 1-2 weeks. Patient will benefit for an outpatient referral to [facility] for his asthma exacerbation. Advised him to discuss with his primary care physician for referral to [facility]. Physical exam: HEENT: Normocephalic atraumatic pupils equal react to light and accommodation. Extraocular muscles intact, conjunctiva pink, oropharynx moist, no thrush, no exudate. Lymphatic: No lymphadenopathy Cardiovascular exam: S1, S2 was heard. No murmurs, rubs, gallops Lung: Clear on auscultation bilaterally, no wheeze, rale, rhonchi. GI: Abdominal soft, nondistended, nontenderness, positive bowel sounds. Extremity: No crepitus, cyanosis, edema. Pedal pulses present bilateral. Full range of motion. Skin: Normal turgor, no rash. Psych: Alert, oriented x3. Neurology: No focal deficits, cranial nerve II to XII grossly intact. This medical document was created using an electronic medical record system with [employer] computerized dictation system. Although this document has been carefully reviewed, there may still be some phonetic and typographical errors. These areas are purely typographical due to imperfections of the software programs, and do not reflect any compromise in the patient's medical care. Condition at Discharge: Stable Final Diagnosis/Problems List copd/asthma exacerbation Rheumatoid arthritis Discharge Disposition: Home Discharge Instruct/Medications Diet: Cardiac 2g Na,low cholest Activity: No Restrictions, As Tolerated Follow Up/Referral: pcp 1-2 weeks. Medications: Zpak until finish Medro dose angelique until finish Discharge Statement: "Patient was advised to return to the ER or call 911 if any headaches, dizziness, shortness of breath, chest pain, abdominal pain, bleeding, fevers, or worsening of medical condition. Patient was counseled about treatment plan, medications, possible side effects, patientverbalized understanding. All questions were answered to the best of my ability. This discharge took greater then 30 minutes in planning, reviewing documentation, counseling the patient, and discussing with other team members." ASSESSMENT ASSESSMENT Assessment copd exacerbation Date of Service: Mar 22, 2024 Billing Provider: DYANA HONG MD Common Visit Codes: 86428-OQY/OBS DISCH DAY >30min DYANA HONG MD Mar 22, 2024 11:49
== END 2024-03-22 14:44 | disposition home or self-care (01) | DRG 140 ==
LOC: ER 10:12 → OVERFLOW 18:34 → EAST 22:48
PROVIDERS: ATTEND Internal Medicine
DX: J44.1 Chronic obstructive pulmonary disease with (acute) exacerbation (principal); J96.01 Acute respiratory failure with hypoxia; J45.901 Unspecified asthma with (acute) exacerbation; Z96.653 Presence of artificial knee joint, bilateral; M06.9 Rheumatoid arthritis, unspecified; Z20.822 Contact with and (suspected) exposure to COVID-19
CPT/HCPCS: 36415; 71045; 71046; 71275; 80048; 80053; 81001; 82607; 82746; 83880; 84484; 85025; 86803; 87340; 87426; 87804; 93005; 93306; 94640; 99291; G0378